=== PATIENT | female | born 1985 | race Caucasian/White ===

== ENCOUNTER → 2017-09-27 | Outpatient (CLI) | payer MEDICARE, MEDICAID | LOC: M PT 11:56 | DX: M86.672 Other chronic osteomyelitis, left ankle and foot (principal); Z89.512 Acquired absence of left leg below knee; Z89.421 Acquired absence of other right toe(s) | CPT/HCPCS: 97163 ==

== ENCOUNTER → 2021-04-17 | Outpatient (CLI) | payer MEDICARE, MEDICAID | LOC: M PT 11:45 | DX: Z89.421 Acquired absence of other right toe(s) (principal) ==